=== PATIENT | male | born 1985 | race Caucasian/White ===

== ENCOUNTER 2019-02-22 12:10 | Observation (INO) ==
--- NOTE | 2019-02-22 12:20 | Emergency Department Note ---
Disposition Clinical Impression: Acute renal failure Qualifiers: Acute renal failure type: unspecified Qualified Code(s): N17.9 - Acute kidney failure, unspecified Disposition: Admitted As Inpatient Condition: Fair Referrals: [facility] [Outside] [facility] [employer] [facility] [Outside] Forms: ED Satisfaction Letter Time of Disposition: 13:06 General Adult HPI - General Chief complaint: ED Nausea/Vomiting/Diarrhea Stated complaint: "I think I'm having a heat stroke" Time Seen by Provider: 02/22/19 12:17 Source: patient Mode of arrival: private vehicle Limitations: no limitations Nursing Notes Reviewed: Yes Vital Signs Reviewed: Yes - History of Present Illness HPI Narrative: Patient relates that he has been having some difficulty over the course of about 3-4 weeks. States he is had a lot of stress and has been very busy at work with sweating. He has been having a feeling of muscle cramps and weakness. He has decreased oral intake. He states he has lost about 27 pounds in 3 weeks. He has had some nausea without vomiting periodically over the night last night. He has not been having diarrhea. Denies abdominal pains or flank pain. Does note that he has been thirsty and urinating a bit more. He denies history of diabetes or other ongoing medical problems. He reports some dyspnea on exertion with work as well as a feeling of chest tightness" with exhaustion". He denies any radiating pain or pain producing diaphoresis or nausea. He has not taken anything [id number] medicines. He states that he is currently rated from his for the last couple weeks he thinks that may be contributing. He denies personal history of any ongoing medical problems or cardiac risk factors. He does chew tobacco. Onset (ago): week(s) - Related Data Home Medications Medication Instructions Recorded Confirmed No Known Home Drugs 02/22/19 02/22/19 Allergies Allergy/AdvReac Type Severity Reaction Status Date / Time Sulfa (Sulfonamide Allergy Rash Verified 03/16/17 13:57 Antibiotics) All systems ED: reviewed and negative except as stated. Past Medical History - Past Medical History Attestation: Yes The following information was validated with the patient. Source: patient, nursing notes reviewed Medical history: Reports: no medical history. Denies: asthma, coronary artery disease, DVT, diabetes, hyperlipidemia, hypertension, pulmonary embolus, renal disease, thyroid disease Surgical history: Reports: no surgical history Psychiatric history: Reports: no psych history - Social History Smoking Status: Never smoker Smokeless Tobacco Status: Yes Alcohol use: Reports: rarely Drug use: Reports: none Physical Exam - General Limitations: no limitations General appearance: alert, in no apparent distress - Head Head exam: atraumatic, normocephalic, normal inspection - Eye Eye exam: Present: normal appearance, PERRL, EOMI. Absent: scleral icterus, conjunctival injection - ENT ENT exam: normal exam, normal oropharynx, mucous membranes moist - Neck Neck exam: Present: normal inspection, full ROM, trachea midline. Absent: tenderness, lymphadenopathy - Chest Chest inspection: Present: normal inspection, symmetric chest wall rise - Respiratory Respiratory exam: Present: normal lung sounds bilaterally. Absent: respiratory distress, wheezes, prolonged expiratory phase - Cardiovascular Cardiovascular exam: Present: regular rate, normal rhythm, normal heart sounds - Abdominal Exam Abdominal exam: Present: soft, Non-Tender, normal bowel sounds. Absent: tenderness, distention, guarding, rebound, rigidity - Extremities Exam Extremities exam: Present: normal inspection, full ROM, normal capillary refill. Absent: tenderness, pedal edema, calf tenderness - Expanded Lower Extremity Exam Neurovascular/Tendon exam: Present: normal capillary refill. Absent: motor deficit, sensory deficit, tendon deficit Gait: observed and normal - Back Exam Back exam: Present: normal inspection, full ROM. Absent: tenderness - Neurological Exam Neurological exam: Present: alert, oriented X3, CN II-XII intact, normal gait, reflexes normal. Absent: motor sensory deficit - Psychiatric Psychiatric exam: Present: normal affect, anxious. Absent: agitated - Skin Skin exam: Present: warm, dry, intact, normal color. Absent: diaphoresis, pallor Course Course Narrative: 1305: Care has been discussed with Dr. Foote. Verbal orders are obtained of the patient's observation continued hydration as well as serial testing. We are waiting bed placement prior to admission. Vital Signs Temperature 97.6 F 02/22/19 12:13 Pulse Rate 102 02/22/19 12:13 Respiratory Rate 18 02/22/19 12:13 Blood Pressure 123/77 02/22/19 12:13 O2 Sat by Pulse Oximetry 95 02/22/19 12:13 Temperature 97.6 F 02/22/19 12:13 Pulse Rate 85 02/22/19 12:37 Respiratory Rate 16 02/22/19 12:37 Blood Pressure 130/91 02/22/19 12:37 O2 Sat by Pulse Oximetry 96 02/22/19 12:37 Oxygen Delivery Oxygen Delivery Room Air Medical Decision Making - Lab Data Lab results reviewed: Yes I reviewed the patient's lab results. Result diagrams: 02/22/19 12:37 02/22/19 12:37 Lab Results 02/22/19 02/22/19 Range/Units 12:37 12:37 WBC 10.5 (4.3-11.1) K/mcL RBC 5.45 (4.19-5.50) M/mcL Hgb 16.0 (12.9-16.9) g/dL Hct 45.4 (37.5-50.1) % MCV 83.3 (83.0-100.0) fL MCH 29.4 (28.0-33.3) pg MCHC 35.2 (31.6-35.5) g/dL RDW 12.5 (11.5-14.5) % Plt Count 331 (140-400) K/mcL MPV 9.3 L (9.4-12.4) fL Immature Gran % 0.5 (0-4) % Seg Neutrophils % 80.0 % Lymphocytes % 12.7 % Monocytes % 6.7 % Eosinophils % 0.0 % Basophils % 0.1 % Neutrophils # 8.4 (1.6-8.9) K/mcL Lymphocytes # 1.3 (0.6-4.6) K/mcL Monocytes # 0.7 (0.0-1.3) K/mcL Eosinophils # 0.0 (0.0-0.6) K/mcL Basophils # 0.0 (0.0-0.2) K/mcL Sodium 131 L (136-145) mEq/L Potassium 3.5 (3.5-5.1) mEq/L Chloride 90 L (98-107) mEq/L Carbon Dioxide 24 (23-29) mEq/L BUN 47 H (6-20) mg/dL Creatinine 3.22 H (0.70-1.30) mg/dL Est GFR ( Amer) 27 L (> 60) Est GFR (Non-Af Amer) 23 L (> 60) BUN/Creatinine Ratio 15 (6-26) Glucose 120 H (70-105) mg/dL Calculated Osmolality 285 (280-300) Calcium 10.8 H (8.6-10.3) mg/dL Total Bilirubin 0.7 (0.3-1.0) mg/dL Direct Bilirubin 0.2 (0.0-0.2) mg/dL Indirect Bilirubin 0.5 (0.0-1.2) mg/dL AST 42 H (13-39) Units/L ALT 29 (7-52) Units/L Alkaline Phosphatase 86 (34-104) Units/L Troponin I < 0.03 (< 0.04) ng/mL Serum Total Protein 9.5 H (6.4-8.9) g/dL Albumin 5.7 (3.5-5.7) g/dL Globulin 3.8 H (2.4-3.5) g/dL Albumin/Globulin Ratio 1.5 (1.1-2.2) - EKG Data EKG #1 EKG attestation: Yes I reviewed and interpreted this EKG. EKG shows normal: sinus rhythm, axis, intervals, QRS complexes, ST-T waves Rate: normal (90) Interpretation: no acute changes, normal EKG
[2019-02-22] MEDS ORDERED: Ondansetron ODT 4 MG TAB.RAPDIS SL ONE (12:42)
[2019-02-22 12:43] LABS: Basophils % 0.1 %; Hematocrit 45.4 % (37.5-50.1); Immature Granulocytes % 0.5 % (0-4); Lymphocytes # 1.3 K/mcL (0.6-4.6); Lymphocytes % 12.7 %; Mean Corpuscular HGB Conc 35.2 g/dL (31.6-35.5); Mean Corpuscular Hemoglobin 29.4 pg (28.0-33.3); Mean Corpuscular Volume 83.3 fL (83.0-100.0); Mean Platelet Volume 9.3 fL (9.4-12.4); Monocytes # 0.7 K/mcL (0.0-1.3); Monocytes % 6.7 %; Neutrophils # 8.4 K/mcL (1.6-8.9); Platelet Count 331 K/mcL (140-400); Red Blood Count 5.45 M/mcL (4.19-5.50); Red Cell Distribution Width 12.5 % (11.5-14.5); White Blood Count 10.5 K/mcL (4.3-11.1)
[2019-02-22 12:56] LABS: Alanine Aminotransferase 29 Units/L (7-52); Albumin 5.7 g/dL (3.5-5.7); Albumin/Globulin Ratio 1.5 (1.1-2.2); Alkaline Phosphatase 86 Units/L (34-104); Aspartate Amino Transferase 42 Units/L (13-39); BUN/Creatinine Ratio 15 (6-26); Bilirubin,Direct 0.2 mg/dL (0.0-0.2); Bilirubin,Indirect 0.5 mg/dL (0.0-1.2); Bilirubin,Total 0.7 mg/dL (0.3-1.0); Blood Urea Nitrogen 47 mg/dL (6-20); Calcium 10.8 mg/dL (8.6-10.3); Carbon Dioxide 24 mEq/L (23-29); Chloride 90 mEq/L (98-107); Globulin 3.8 g/dL (2.4-3.5); Glucose 120 mg/dL (70-105); Osmolality,Calculated 285 (280-300); Potassium 3.5 mEq/L (3.5-5.1); Sodium 131 mEq/L (136-145); Total Protein 9.5 g/dL (6.4-8.9); eGFR For African Americans 27 (> 60); eGFR For Non-African Americans 23 (> 60)
[2019-02-22] MEDS ORDERED: 0.9 % Sodium Chloride 1,000 ML IVC ONE (12:57)
[2019-02-22 12:59] LABS: Troponin I < 0.03 ng/mL (< 0.04)
[2019-02-22] MEDS ORDERED: 0.9 % Sodium Chloride 1,000 ML IVC SCH ×2 (13:00→14:25)
[2019-02-22] MEDS ORDERED: Ondansetron ODT 4 MG TAB.RAPDIS SL PRN ×2 (14:25→16:11)
[2019-02-22] MEDS ORDERED: Naloxone 0.4 MG/ML INJ IVP PRN (14:25)
[2019-02-22] MEDS ORDERED: Mag Hydrox/Al Hydrox/Simeth 30 ML UDC PO PRN (14:25)
[2019-02-22] MEDS ORDERED: Acetaminophen 325 MG TABLET PO PRN (16:10)
--- NOTE | 2019-02-22 16:14 | Internal Med History&Physical ---
Date of Encounter: 02/22/19 Time of Encounter: 15:35 Assessment and Plan (1) Renal failure Current visit: Yes Status: Acute Duration unknown. No previous labs available for comparison. Urinalysis will be checked. IV fluids have been ordered. Recheck labs in a.m. Qualifiers: Renal failure chronicity: unspecified chronicity Qualified Code(s): N19 - Unspecified kidney failure (2) Hypercalcemia Current visit: Yes Status: Acute IV fluids have been ordered. Recheck labs in a.m. (3) Hyperproteinemia Current visit: Yes Status: Acute Recheck labs in a.m. Internal Medicine - H&P: HPI Chief complaint: Weakness, vomiting Admitted From: Emergency Dept Plans for Post Hospital Care: Home History of present illness: Mr. Pichardo is a 33 year old male who came to emergency room stating he had 3 week history of aggressive weakness. He had occasional tightness in his chest that was unrelated to activity. He reports 27 pound weight loss unintentional. He had multiple episodes of nonbloody vomiting onset 2 days ago. He came to emergency room and was evaluated and was found to have renal failure with slight left shift on WBC differential. He was admitted to [facility] floor for ongoing care needs. He denies previous similar episodes. He denies unusual travel or exposures. He denies personal contacts with similar symptoms. He has no history of disorders of his liver gallbladder or exocrine pancreas. history is pertinent for remote kidney stones but no other kidney or bladder prostate disorders. Past Med Surg Social Fam HX - Past Medical History Medical history: no medical history Psychiatric history: no psych history - Past Surgical History Surgical History: no surgical history - Social History Smoking Status: Never smoker Smokeless Tobacco Status: Yes Alcohol use: rarely Drug use: none Internal Medicine - H&P: Meds No Known Home Drugs 02/22/19 [History] Allergy/AdvReac Type Severity Reaction Status Date / Time Sulfa (Sulfonamide Allergy Rash Verified 03/16/17 13:57 Antibiotics) All Systems PM: A 10-system review of systems was performed and is negative for pertinent findings except as documented above in the HPI. Review of systems: Gen.: He reports 27 pound weight loss in the past 3 weeks Cardiovascular: He denies hypertension [place] heart failure angina DVT or pulmonary embolus Respiratory: He is a lifelong nonsmoker and denies chronic lung disease GI: As per history of present illness : As per history of present illness Neurologic: He denies large distribution strokes or seizures. Endocrine: He denies diabetes thyroid disease or hyperlipidemia Hematology/oncology: He denies blood disorders cancers or anemia Psychiatric: He has had feelings of depression past 2 weeks but denies medication use. He denies other mental health diagnoses. [place] skeletal: He has had bilateral hand cramps and weakness in the past few weeks. He reports occasional diffuse myalgias. He denies other bone joint or muscle disorders. - Constitutional Vitals: Temp Pulse Resp BP Pulse Ox 97.8 F 76 24 135/80 100 02/22/19 15:05 02/22/19 15:05 02/22/19 15:05 02/22/19 15:05 02/22/19 15:05 Exam: Gen.: He is a well-developed well-nourished male resting comfortably in bed who appears in no severe distress HEENT: Head is atraumatic and normocephalic. Eyes: EOMI. There is no scleral icterus. Mouth: Mucosa is moist. Neck: Supple and nontender. There is no thyromegaly or adenopathy noted. Heart: Regular without murmurs gallops or ectopics Lungs: No wheezes or crackles are heard. Abdomen: Soft and nontender. No masses or guarding are noted. Extremities: There is no cyanosis edema or clubbing noted. Dorsalis pedis and posterior tibial pulses are 2 over 2 bilaterally. Neurologic: Mental status: He is talkative and a good historian. Cranial nerves: Smile is symmetric. Forehead wrinkles bilaterally. Tongue protrudes midline. EOMI. Motor: There is no pronator drift. Cerebellar: Fair to nose is intact bilaterally. Skin: Warm and dry Internal Med - H&P Results - Labs CBC & Chem 7: 02/22/19 12:37 02/22/19 12:37 Labs: Short CBC 02/22/19 Range/Units 12:37 WBC 10.5 (4.3-11.1) K/mcL Hgb 16.0 (12.9-16.9) g/dL Hct 45.4 (37.5-50.1) % Plt Count 331 (140-400) K/mcL Neutrophils # 8.4 (1.6-8.9) K/mcL BMP 02/22/19 12:37 Sodium 131 L Potassium 3.5 Chloride 90 L Carbon Dioxide 24 BUN 47 H Creatinine 3.22 H Glucose 120 H Calcium 10.8 H Cardiac Enzymes 02/22/19 Range/Units 12:37 Troponin I < 0.03 (< 0.04) ng/mL Liver Function 02/22/19 Range/Units 12:37 Total Bilirubin 0.7 (0.3-1.0) mg/dL Direct Bilirubin 0.2 (0.0-0.2) mg/dL AST 42 H (13-39) Units/L ALT 29 (7-52) Units/L Alkaline Phosphatase 86 (34-104) Units/L Albumin 5.7 (3.5-5.7) g/dL
[2019-02-22] MEDS: 0.45 % Sodium Chloride w/KCl 20 MEQ/1,000 ML MLS IVC SCH (17:20)
[2019-02-22] MEDS: Pantoprazole 40 MG VIAL IVP SCH (17:20)
[2019-02-22 23:26] LABS: Bilirubin,Urine Small (Negative); Blood,Urine Moderate (Negative); Clarity,Urine Clear (Clear); Color,Urine Yellow (Yellow); Glucose,Urine (UA) Normal (Normal); Ketones,Urine Negative (Negative); Leukocyte Esterase,Urine Negative (Negative); Nitrite,Urine Negative (Negative); PH,Urine 5.5 pH Units (5.0-8.0); Protein,Urine Trace mg/dL (Neg-Trace); Specific Gravity,Urine >= 1.030 (1.010-1.025); Urobilinogen,Urine Normal (Normal)
[2019-02-22 23:34] LABS: Calcium Oxalate Crystals,Urine Present
[2019-02-22 23:35] LABS: Hyaline Casts,Urine Moderate per lpf (None-Few); Mucus,Urine Few (Few)
[2019-02-23] MEDS: 0.45 % Sodium Chloride w/KCl 20 MEQ/1,000 ML MLS IVC SCH ×2 (01:36→09:29)
[2019-02-23] MEDS: Pantoprazole 40 MG VIAL IVP SCH (06:14)
[2019-02-23 06:24] LABS: Basophils % 0.4 %; Eosinophils # 0.1 K/mcL (0.0-0.6); Eosinophils % 1.1 %; Hemoglobin 13.5 g/dL (12.9-16.9); Immature Granulocytes % 0.2 % (0-4); Lymphocytes # 2.4 K/mcL (0.6-4.6); Lymphocytes % 45.3 %; Mean Corpuscular HGB Conc 34.6 g/dL (31.6-35.5); Mean Corpuscular Hemoglobin 29.5 pg (28.0-33.3); Mean Corpuscular Volume 85.2 fL (83.0-100.0); Mean Platelet Volume 9.5 fL (9.4-12.4); Monocytes # 0.6 K/mcL (0.0-1.3); Neutrophils # 2.2 K/mcL (1.6-8.9); Platelet Count 235 K/mcL (140-400); Red Blood Count 4.58 M/mcL (4.19-5.50); Red Cell Distribution Width 12.6 % (11.5-14.5); White Blood Count 5.3 K/mcL (4.3-11.1)
[2019-02-23 06:42] LABS: Alanine Aminotransferase 22 Units/L (7-52); Albumin 4.4 g/dL (3.5-5.7); Albumin/Globulin Ratio 1.5 (1.1-2.2); Alkaline Phosphatase 63 Units/L (34-104); Aspartate Amino Transferase 37 Units/L (13-39); BUN/Creatinine Ratio 28 (6-26); Bilirubin,Total 0.9 mg/dL (0.3-1.0); Blood Urea Nitrogen 32 mg/dL (6-20); Calcium 9.3 mg/dL (8.6-10.3); Carbon Dioxide 28 mEq/L (23-29); Chloride 98 mEq/L (98-107); Globulin 2.9 g/dL (2.4-3.5); Glucose 91 mg/dL (70-105); Osmolality,Calculated 282 (280-300); Potassium 3.8 mEq/L (3.5-5.1); Sodium 133 mEq/L (136-145); Total Protein 7.3 g/dL (6.4-8.9); eGFR For African Americans > 60 (> 60); eGFR For Non-African Americans > 60 (> 60)
[2019-02-23 12:04] VITALS: BP 102/60
--- NOTE | 2019-02-23 12:09 | Discharge Summary ---
Date of Encounter: 02/23/19 Time of Encounter: 12:02 - Discharge Diagnosis (1) Renal failure Priority: Primary Status: Acute Qualifiers: Renal failure chronicity: acute Acute renal failure type: unspecified Qualified Code(s): N17.9 - Acute kidney failure, unspecified (2) Hypophosphatemia Priority: Secondary Status: Acute (3) Hypercalcemia Priority: Secondary Status: Resolved (4) Hyperproteinemia Priority: Secondary Status: Resolved Hospital course: Mr. Pichardo is a 33 year old male who came to emergency room stating he had 3 week history of aggressive weakness. He had occasional tightness in his chest that was unrelated to activity. He reports 27 pound weight loss unintentional. He had multiple episodes of nonbloody vomiting onset 2 days ago. He came to emergency room and was evaluated and was found to have renal failure with slight left shift on WBC differential. He was admitted to [facility] floor for ongoing care needs. Initial orders were written by the emergency room physician. I saw him on February 22 and performed a history and physical. He was started on IV fluids. Follow-up labs on February 23 showed BUN and creatinine decreased to 32 and 1.16 respectively with estimated GFR > 60. Calcium normalized to 9.3. Total serum protein normalized to 7.3. Phosphorus level returned low at 2.0. He will be prescribed Neutra-Phos for 3 days. His PCP can follow-up labs. Urinalysis returned showing presence of moderate blood with calcium oxalate crystals. His PCP can follow up to see if these resolve. On February 23 he felt significantly improved and wished to be discharged home. He will follow with Cortney Cheatham CNP within 1 week. - Time Spent with Patient Total time spent providing and/or coordinating discharge services: - Discharge Medications Prescriptions: New Phos-NaK [Neutra-Phos] 1 each PO DAILY #3 powd.pack Home Medications: Phos-NaK [Neutra-Phos] 1 each PO DAILY #3 powd.pack 02/23/19 [Rx] Allergies/Adverse Reactions: Allergy/AdvReac Type Severity Reaction Status Date / Time Sulfa (Sulfonamide Allergy Rash Verified 03/16/17 13:57 Antibiotics) Date of admission: 02/22/19 13:30 Primary care physician: Cortney Cheatham CNP - Constitutional Vitals: Temp Pulse Resp BP Pulse Ox 98.0 F 67 16 102/60 96 02/23/19 12:02 02/23/19 12:02 02/23/19 12:02 02/23/19 12:02 02/23/19 12:02 - Patient Status Disposition: Home, Self-Care Condition: Fair - Discharge Instructions Follow Up With: Cortney Cheatham, [facility] [Advanced Practice Nurse] - 1 week - Diet and Activity Activity: resume usual activities as tolerated Diet: advance to your usual diet
--- NOTE | 2019-02-23 14:21 | Electrocardiograph Report ---
[address] [address] Test Date: 2019-02-22 Pat Name: Miquel Pichardo Department: EDP-16 Room: [facility] Gender: M Director Drug: : 1985 Requested By: Brandon Mckeon Order Number: [id number] Reading MD: Genaro Larson Measurements Intervals [place] Rate: 90 P: 54 SC: 136 QRS: 78 QRSD: 110 T: 6 QT: 371 QTc: 454 Interpretive Statements Sinus rhythm Electronically Signed On 02-23-2019 14:20:08 EDT by Genaro Larson
== END 2019-02-23 13:23 | disposition home or self-care (01) ==
LOC: INPPIK 12:10 → EMEROOPIK 12:10 → INPPIK 13:58
PROVIDERS: ADMIT Internal Medicine; ATTEND Internal Medicine